=== PATIENT | female | born 1975 | race Caucasian/White ===

== ENCOUNTER 2020-04-13 23:17 | Emergency (ER) | payer OTHER, SELFPAY ==
--- NOTE | ~2020-04-13 | XR_ITS ---
EXAMINATION: XR wrist LT min 3V DATE: 04/13/2020 23:35 INDICATION: Left wrist pain TECHNIQUE: Posteroanterior, ulnar deviation, oblique, and lateral views of the left wrist were obtain ed. COMPARISON: 04/03/2011 FINDINGS: Old healed distal left radial fracture which is fixed with a pair of dorsal plate and screws. No inst rumentation failure or lucency surrounding the screws to suggest loosening or infection. Alignment of the healed fracture appears near-anatomic. No acute fractures identified. Joint spaces are normal. N o erosions. Prominent soft tissue swelling over the dorsum of the carpus. IMPRESSION: 1. No acute osseous abnormality. Reviewed, dictated and finalized at location [facility]
--- NOTE | 2020-04-13 23:20 | ED_ITS ---
HPI - Extremity Problem General Chief complaint: Extremity Injury, Upper Stated complaint: left wrist injury Time Seen by Provider: 04/13/20 23:19 Related Data Allergies Allergy/AdvReac Type Severity Reaction Status Date / Time aspirin Allergy Unknown Verified 03/20/14 13:02 Sulfa (Sulfonamide Allergy Unknown Verified 10/05/16 10:17 Antibiotics) [facility] Family History Family History (Updated 01/23/14 @ 07:13 by DOCTOR UNKNOWN) Mother Family history of bipolar disorder Family history of chronic obstructive pulmonary disease Social History Social History Smoking status: Former smoker Second hand tobacco smoke exposure: No Smoking end date: 05/29/12 Alcohol intake: never Discharge Plan Discharge Prescriptions: No Action pantoprazole [Protonix] 40 mg tablet,delayed release (DR/EC) 40 mg PO QAM Qty: 30 RF: 0
[2020-04-13 23:26] VITALS: BP 125/86; PULSE 78; RESP 15; TEMP 36.7; O2SAT 100
[2020-04-13] MEDS: HYDROcodone/acetaminophen (*CRX) 5-325 MG TABLET 1 TAB PO (23:41)
--- NOTE | 2020-04-14 00:08 | ED.UPPEXIN ---
HPI - Extremity Injury (Upper) General Chief Complaint: Extremity Injury, Upper Stated Complaint: left wrist injury Time Seen by Provider: 04/13/20 23:19 Source: patient Mode of arrival: ambulatory Limitations: no limitations History of Present Illness HPI narrative: 45-year-old female History of a previous ORIF of a left distal radius fracture done at [place] Notes that tonight she was just pulling on her socks, which are just regular socks not even tight-fitting elastic support socks, and felt a pop and pain in the wrist There is no obvious deformity and no numbness or weakness Related Data Allergies Allergy/AdvReac Type Severity Reaction Status Date / Time aspirin Allergy Unknown Unknown Verified 04/13/20 23:25 Sulfa (Sulfonamide Allergy Unknown Rash Verified 04/13/20 23:25 Antibiotics) Review of Systems Constitutional: Constitutional: Denies weakness Musculoskeletal: Musculoskeletal: Reports arthralgias, Reports joint swelling and Denies muscle cramps Neurologic: Denies focal weakness, Denies numbness and Denies weakness [facility] Family History Family History (Updated 01/23/14 @ 07:13 by DOCTOR UNKNOWN) Mother Family history of bipolar disorder Family history of chronic obstructive pulmonary disease Social History Social History Smoking status: Former smoker Second hand tobacco smoke exposure: No Smoking end date: 05/29/12 Alcohol intake: never Exam Const: General: no acute distress and alert Orientation/consciousness: patient oriented x3 HENMT: Mouth: Yes moist mucous membranes Eyes: Conjunctivae: conjunctivae normal EOM: EOMs intact bilaterally Resp: Effort & Inspection: normal respiratory effort Skin: General skin exam: normal color Neuro: General: patient oriented x3 and moves all extremities Extrem: Other: There is an old scar, there is no gross deformity, the hardware is palpable in a couple locations but not grossly loose or removable, neurovascular exam is normal Course Vital Signs Vital signs: Vital Signs Temperature 36.7 C 04/13/20 23:26 Pulse Rate 78 04/13/20 23:26 Respiratory Rate 15 04/13/20 23:26 Blood Pressure 125/86 04/13/20 23:26 Pulse Oximetry 100 04/13/20 23:26 Temperature 36.7 C 04/13/20 23:26 Pulse Rate 78 04/13/20 23:26 Respiratory Rate 15 04/13/20 23:26 Blood Pressure 125/86 04/13/20 23:26 Pulse Oximetry 100 04/13/20 23:26 Discharge Plan Discharge Clinical Impression: Sprain and strain of wrist Patient Disposition: Home, Self-Care Condition: Stable Instructions: Wrist Injury (ED) Additional Instructions: Zachariah wrap for comfort Can use a [id number] Velcro wrist splint if desired Follow with her orthopedist in [place] as needed Prescriptions: No Action pantoprazole [Protonix] 40 mg tablet,delayed release (DR/EC) 40 mg PO QAM Qty: 30 RF: 0 Follow-up/Referrals: Millie,Juan M Hayes [Primary Care Provider] - (as needed)
[2020-04-14 00:33] VITALS: RESP 14
== END 2020-04-14 00:30 | disposition home or self-care (01) ==
PROVIDERS: Emergency Provider Emergency Medicine; PCP Internal Medicine Infectious Disease
DX: S63.502A Unspecified sprain of left wrist, initial encounter (principal); S66.912A Strain of unspecified muscle, fascia and tendon at wrist and hand level, left hand, initial encounter; Z87.891 Personal history of nicotine dependence; X50.9XXA Other and unspecified overexertion or strenuous movements or postures, initial encounter
CPT/HCPCS: 73110; 99283; A9270

== ENCOUNTER 2020-05-09 20:22 | Emergency (ER) | payer OTHER, SELFPAY ==
[2020-05-09 20:24] VITALS: BP 116/74; PULSE 77; RESP 12; TEMP 36.4; O2SAT 100
--- NOTE | 2020-05-09 20:45 | PC.NURSE ---
patient brought back to ED room 18 with c/o bump around her mouth and down her jaw. see initial notes. no change in patient's condition since triage completed. resting on stretcher. SO in room. assessments documented. updated on current treatment plan and expected wait time. waiting for orders from provider.
--- NOTE | 2020-05-09 20:53 | ED.SKABFB ---
HPI - Skin/Abscess/Foreign Bdy General Chief complaint: Skin/Abscess/Foreign Body Stated complaint: knots in face Time Seen by Provider: 05/09/20 20:39 Source: patient Mode of arrival: ambulatory Limitations: no limitations History of Present Illness HPI narrative: This is a 45 year old female that presents to the ER for right sided lymphadenopathy. Associated with sore throat. Denies fever, or cough. Related Data Allergies Allergy/AdvReac Type Severity Reaction Status Date / Time aspirin Allergy Unknown Unknown Verified 04/13/20 23:25 Sulfa (Sulfonamide Allergy Unknown Rash Verified 04/13/20 23:25 Antibiotics) Review of Systems Review of Systems: Narrative: CONSTITUTIONAL: Denies fever ENT: Reports sore throat. Denies rhinorrhea, congestion RESPIRATORY: Denies dyspnea. All systems reviewed & are unremarkable except as noted in HPI and below PMFSH Past Medical History Medical History (Updated 05/09/20 @ 21:16 by Magi Barrett PA-C) History of COPD History of gastroesophageal reflux (GERD) History of peripheral arterial disease Family History Family History (Updated 01/23/14 @ 07:13 by DOCTOR UNKNOWN) Mother Family history of bipolar disorder Family history of chronic obstructive pulmonary disease Social History Social History Smoking status: Former smoker Second hand tobacco smoke exposure: No Smoking end date: 05/29/12 Alcohol intake: never Exam Narrative: Exam Narrative: GENERAL: Well-appearing, well-nourished, and in no acute distress. HEAD: Normocephalic, atraumatic. EYES: EOMI. ENT: Nares clear, no rhinorrhea or epistaxis. Mucous membranes moist. Oropharynx with mild erythema, without tonsillar hypertrophy exudate or other lesions. Bilateral TMs pearly vazquez non-bulging NECK: Supple. No adenopathy or masses. CHEST: Clear to auscultation. No respiratory distress. No wheezes rales or rhonchi HEART: Regular rate and rhythm. No murmur heard. Normal peripheral pulses. EXTREMITIES: Normal range of motion. No edema. SKIN: Warm, dry, no rash. NEURO: No focal deficits. Alert and oriented x3. PSYCH: Normal mood and affect Course Vital Signs Vital signs: Vital Signs Temperature 97.5 F L 05/09/20 20:24 Pulse Rate 77 05/09/20 20:24 Respiratory Rate 12 05/09/20 20:24 Blood Pressure 116/74 05/09/20 20:24 Pulse Oximetry 100 05/09/20 20:24 Temperature 97.5 F L 05/09/20 20:24 Pulse Rate 77 05/09/20 20:24 Respiratory Rate 12 05/09/20 20:24 Blood Pressure 116/74 05/09/20 20:24 Pulse Oximetry 100 05/09/20 20:24 MDM - Skin/Abscess/Foreign Bdy MDM Narrative Medical decision making narrative: Patient presents to the emergency department for sore throat, was also reporting tender adenopathy. She is afebrile and nontoxic-appearing. No abnormal masses noted on exam. Mild erythema of the oropharynx noted. Strep screen is negative. Patient instructed on care of viral infection. She is to follow-up with primary care doctor. She was given warnings to return the ER Lab Data Attestation: I reviewed the patient's lab results. Labs: Strep Screen Presumptive Negative *(Reference Range: Negative)* Critical Care Time Critical Care Time Critical Care Time: No Discharge Plan Discharge Clinical Impression: Pharyngitis Qualifiers: Pharyngitis/tonsillitis etiology: unspecified etiology Qualified Code(s): J02.9 - Acute pharyngitis, unspecified Patient Disposition: Home, Self-Care Condition: Stable Instructions: Pharyngitis (ED) Additional Instructions: Return to the emergency department for worsening symptoms, or any other concerns Remain well-hydrated, get plenty of rest. Take Tylenol or Motrin [id number] for pain as needed. Lozenges or Chloraseptic spray for sore throat. Follow up with your primary care doctor Prescriptions: No Action pantoprazole [Protonix] 40 mg tablet,delayed r
--- NOTE | 2020-05-09 21:02 | PC.NURSE ---
patient ambulated to restroom and back. strep swab done at bedside.
== END 2020-05-09 21:29 | disposition home or self-care (01) ==
PROVIDERS: Emergency Provider Emergency Medicine; PCP Internal Medicine Infectious Disease
DX: J02.9 Acute pharyngitis, unspecified (principal); Z87.891 Personal history of nicotine dependence; J44.9 Chronic obstructive pulmonary disease, unspecified; K21.9 Gastro-esophageal reflux disease without esophagitis; I73.9 Peripheral vascular disease, unspecified
CPT/HCPCS: 87081; 87880; 99283